=== PATIENT | female | born 1955 | race African-American/Black ===

== ENCOUNTER 2017-04-14 11:40 | Emergency (ER) | payer OTHER ==
[~2017-04-14] VITALS: Ht 167.6 cm; Wt 87.1 kg
--- NOTE | ~2017-04-14 | EKG ---
[facility] [address] [place] [address] ELECTROCARDIOGRAM REPORT Name: MINOO HITCHCOCK [facility] [id number] Admission: 04/14/17 Attend Phys: Discharge: 04/14/17 Date of : 57 Report #: [id number] THIS REPORT FOR: //name// [facility] ED Test Date: 2017-04-14 Test Time: 12:31:17 Pat Name: MINOO HITCHCOCK Department: Room: Gender: F Imagery Analyst: CALVIN : 1955 Requested By: Ajay Richardson Order Number: [id number] MD: Juan M Cortez Measurements Intervals [place] Rate: 78 P: 64 OR: 165 QRS: -18 QRSD: 99 T: 0 QT: 386 QTc: 440 Interpretive Statements Sinus rhythm Biatrial enlargement Borderline left axis deviation Borderline T abnormalities No previous ECG available for comparison Electronically Signed On 04-14-2017 16:06:53 WAREHOUSE ADMINISTRATOR by Juan M Cortez [email or web address] <ELECTRONICALLY SIGNED> By: Juan M Cortez MD, [facility] 04/14/17 1606 1231 1231 Juan M Cortez MD, FACC /EPI
[~2017-04-14 11:40] MED LIST: ADVIL200 MG PO; NOHOMEMEDICATIONS; NORCO 5-325 TA1 EACH PO
[2017-04-14 12:54] LABS: HEMATOCRIT 43.5 % (37.0-47.0); HEMOGLOBIN 15.2 gm/dL (12.0-15.0); MCH 28.6 pg (26.0-34.0); MCHC 34.9 g/dL (28.0-37.0); MCV 81.9 fL (80.0-100.0); RBC 5.31 mil/uL (4.20-5.00); RDW 14.3 % (10.5-14.5); WBC 4.4 thou/uL (4.0-11.0)
[2017-04-14 13:02] LABS: ANION GAP 10 mmol/L (7-16); BUN 9 mg/dL (7-18); CHLORIDE 103 mmol/L (98-107); CO2 28 mmol/L (21-32); CREATININE 0.9 mg/dL (0.6-1.0); GLUCOSE 98 mg/dL (74-106); POTASSIUM 3.1 mmol/L (3.5-5.1); SODIUM 141 mmol/L (136-145)
[2017-04-14 13:08] LABS: APTT 28.6 Seconds (24.5-32.8); INR 1.1; PROTIME 10.8 Seconds (9.3-11.4)
[2017-04-14 13:11] LABS: ALBUMIN 3.6 g/dL (3.4-5.0); LIPASE 91 U/L (73-393); MAGNESIUM 1.8 mg/dL (1.8-2.4); SGOT 59 U/L (15-37); SGPT 63 U/L (30-65); TOTAL BILIRUBIN 0.8 mg/dL (<0.1-1.0); TOTAL PROTEIN 7.7 g/dL (6.4-8.2); TROPONIN-I < 0.04 ng/mL (<0.06)
[2017-04-14] MEDS ORDERED: NEURONTIN600 MG PO (13:16)
[2017-04-14 13:53] LABS: URINE BILIRUBIN 1+ (Negative); URINE BLOOD TRACE (Negative); URINE CLARITY CLEAR; URINE COLOR YELLOW; URINE GLUCOSE-RANDOM* NEGATIVE (Negative); URINE KETONES 1+ (Negative); URINE NITRITE-REFLEX NEGATIVE (Negative); URINE PROTEIN (DIPSTICK) NEGATIVE (Negative); URINE SPECIFIC GRAVITY <= 1.005 (1.005-1.035); URINE UROBILINOGEN 0.2 E.U./dl (0.2-1.0)
[2017-04-14 13:55] LABS: PLATELET COUNT 143 thou/uL (150-400); PLATELET ESTIMATE NORMAL
[2017-04-14 14:00] LABS: URINE LEUKOCYTES-REFLEX TRACE (Negative)
[2017-04-14 14:01] LABS: ICTOTEST (BILI CONFIRMATORY) Negative (Negative)
[2017-04-14 14:03] VITALS: BP 127/101
[2017-04-14] MEDS ORDERED: ONDANSETRON HCL4 M2 PO (14:22)
== END 2017-04-14 15:20 | disposition home or self-care (01) ==
LOC: ER 11:40
PROVIDERS: Emergency Medicine
DX: R11.10 Vomiting, unspecified (principal); R10.13 Epigastric pain; R06.00 Dyspnea, unspecified

== ENCOUNTER 2017-04-21 17:13 | Inpatient (IN) | payer OTHER ==
[~2017-04-21] VITALS: Ht 170.2 cm; Wt 86.2 kg
--- NOTE | ~2017-04-21 | S ---
[facility] [place] [address] SURGICAL PATH RPT PROCEDURE Name: MINOO SCHUSTER Room #: 427-P ADM IN M.R.#: [id number] Admission: 04/21/17 Date of : 57 Discharge: Report #: [id number] Path Case #: [id number] PATHOLOGY REPORT COLLECTION DATE: 04/22/2017 RECEIVED DATE: 04/22/2017 SUBMITTING PHYS: Dr. Vimal Sparks, OTHER PHYS: Dr. Luis Miguel Oconnor SPECIMEN(S) RECEIVED: A.Gallbladder * * * * * * * * * * * * FINAL DIAGNOSIS: Gallbladder, cholecystectomy: - Mild chronic cholecystitis. - Cholelithiasis. (IUV:pit; 04/25/2017) PATHOLOGIST: Indigo Szymanski M.D. REPORT ELECTRONICALLY SIGNED BY: Indigo Szymanski M.D. DATE/TIME: 04/25/2017 14:45 * * * * * * * * * * * * GROSS PATHOLOGY: Received in formalin labeled "Minoo Schuster gallbladder," is a 6.8 x 3.8 x 1.1 cm, previously opened gallbladder with pink-laurent, bile-stained serosal surfaces. Opening the gallbladder reveals a velvety, pink-laurent mucosa and an average wall thickness of 0.1 cm. Calculi are present displaying a bright yellow and multinodular appearance, and no masses are noted grossly. Occasional Babysitter sections from the body and fundus are submitted along with the proximal margin in cassette A1. (CAA; 04/22/2017) CLINICAL HISTORY: Acute cholecystitis INITIAL CPT CODE(S): A; 83244 Professional services performed by [facility] at [facility] [address], [place] [address] Technical services performed by [facility] at [address] [place] [address] [address] [place] [address] SURGICAL PATH RPT PROCEDURE Name: MINOO SCHUSTER Room #: 427-P ADM IN .R.#: [id number] Admission: 04/21/17 Date of : 57 Discharge: Report #: [id number] Path Case #: [id number] [address]. [facility] [address] [address] PHONE: [phone] DIRECTOR: Basil Moore M.D. * * * END OF REPORT * * *
--- NOTE | ~2017-04-21 | EKG ---
[place] [address] [facility] [employer] [place] [place] [address] ELECTROCARDIOGRAM REPORT Name: MINOO HITCHCOCK Room #: 427-P ADM IN M.R.#: [id number] Admission: 04/21/17 Attend Phys: Luis Miguel Oconnor MD Discharge: Date of : 57 Report #: [id number] THIS REPORT FOR: //name// [facility] Test Date: 2017-04-23 Test Time: 00:45:01 Pat Name: MINOO HITCHCOCK Department: Room: 427 P Gender: F Grain Operations Manager: shahla : 1955 Requested By: Alva Balbuena Order Number: [id number] MD: Juan M Cortez Measurements Intervals [place] Rate: 75 P: 72 [place]: 162 QRS: -8 QRSD: 85 T: 35 QT: 394 QTc: 441 Interpretive Statements Sinus rhythm Biatrial enlargement Compared to ECG 04/21/2017 17:40:09 ST (T wave) deviation no longer present Electronically Signed On 04-23-2017 13:07:14 STAFF COUNSELOR by Juan M Cortez [email or web address] <ELECTRONICALLY SIGNED> By: Juan M Cortez MD, [facility] 04/23/17 1307 0045 0045 Juan M Cortez MD, [facility] /EPI
--- NOTE | ~2017-04-21 | EKG ---
[place] [address] [facility] [place] [address] ELECTROCARDIOGRAM REPORT Name: MINOO HITCHCOCK Room #: 427-P ADM IN M.R.#: [id number] Admission: 04/21/17 Attend Phys: Luis Miguel Oconnor MD Discharge: Date of : 57 Report #: [id number] THIS REPORT FOR: //name// [facility] Test Date: 2017-04-23 Test Time: 07:02:55 Pat Name: MINOO HITCHCOCK Department: Room: 427 Gender: F Maintenance Apprentice: renuka : 1955 Requested By: Luis Miguel Oconnor Order Number: [id number] MD: Juan M Cortez Measurements Intervals [place] Rate: 70 P: 65 [place]: 180 QRS: -17 QRSD: 108 T: 28 QT: 448 QTc: 484 Interpretive Statements Sinus rhythm Borderline left axis deviation Nonspecific ST segment abnormality Compared to ECG 04/21/2017 17:40:09 No significant changes Electronically Signed On 04-23-2017 13:10:05 LEGAL SECRETARY RECEPTIONIST by Juan M Cortez [email or web address] <ELECTRONICALLY SIGNED> By: Juan M Cortez MD, [facility] 04/23/17 1310 0702 0702 Juan M Cortez MD, [facility] /EPI
--- NOTE | ~2017-04-21 | EKG ---
[address] [place] [address] ELECTROCARDIOGRAM REPORT Name: MINOO HITCHCOCK Room #: 427-P ADM IN M.R.#: [id number] Admission: 04/21/17 Attend Phys: Luis Miguel Oconnor MD Discharge: Date of : 57 Report #: [id number] THIS REPORT FOR: //name// [facility] ED Test Date: 2017-04-21 Test Time: 17:40:09 Pat Name: MINOO HITCHCOCK Department: Room: 427 Gender: F Pt Skilled: LINNEA : 1955 Requested By: Morteza Andrade Order Number: [id number] MD: Juan M Cortez Measurements Intervals [place] Rate: 71 P: 64 [place]: 181 QRS: -9 QRSD: 94 T: 36 QT: 432 QTc: 470 Interpretive Statements Sinus rhythm Nonspecific ST segment abnormality Compared to ECG 04/14/2017 12:31:17 Nonspecific change in the ST and T-wave segments Electronically Signed On 04-22-2017 8:00:30 BUS PERSON by Juan M Cortez [email or web address] <ELECTRONICALLY SIGNED> By: Juan M Cortez MD, [facility] 04/22/17799 174 39 Juan M Cotrez MD, [facility] /EPI
--- NOTE | ~2017-04-21 | EKG ---
[address] [address] ELECTROCARDIOGRAM REPORT Name: MINOO HITCHCOCK Room #: 427-P ADM IN M.R.#: [id number] Admission: 04/21/17 Attend Phys: Luis Miguel Oconnor MD Discharge: Date of : 57 Report #: [id number] THIS REPORT FOR: //name// [facility] Test Date: 2017-04-23 Test Time: 09:12:45 Pat Name: MINOO HITCHCOCK Department: Room: 427 P Gender: F Solo Musician: DINORA : 1955 Requested By: Luis Miguel Oconnor Order Number: [id number] MD: Juan M Cortez Measurements Intervals [place] Rate: 71 P: MA: QRS: -9 QRSD: 117 T: 23 QT: 430 QTc: 468 Interpretive Statements Atrial flutter with predominant 4:1 AV block Nonspecific intraventricular conduction delay Nonspecific ST segment abnormality Compared to ECG 04/23/2017 07:02:55 No significant change was found Electronically Signed On 04-24-2017 14:22:55 CDT by Juan M Cortez [email or web address] <ELECTRONICALLY SIGNED> By: Juan M Cortez MD, [facility] 04/24/17 1422 1 1 Juan M Cortez MD, [facility] /EPI
[~2017-04-21 17:13] MED LIST changes: +NEURONTIN600 MG PO; +ONDANSETRON HCL4 M2 PO
[2017-04-21 17:16] VITALS: BP 164/87
[2017-04-21] MEDS ORDERED: OXYCONTIN20 M1 PO (17:23)
[2017-04-21 17:57] LABS: HEMATOCRIT 41.7 % (37.0-47.0); HEMOGLOBIN 14.6 gm/dL (12.0-15.0); MCH 28.6 pg (26.0-34.0); MCV 81.6 fL (80.0-100.0); RBC 5.11 mil/uL (4.20-5.00); WBC 5.3 thou/uL (4.0-11.0)
[2017-04-21 18:04] LABS: ANION GAP 12 mmol/L (7-16); BUN 6 mg/dL (7-18); CALCIUM 9.4 mg/dL (8.5-10.1); CHLORIDE 104 mmol/L (98-107); CO2 27 mmol/L (21-32); CREATININE 0.9 mg/dL (0.6-1.0); GLUCOSE 109 mg/dL (74-106); SODIUM 143 mmol/L (136-145)
[2017-04-21 18:10] LABS: ALBUMIN 3.6 g/dL (3.4-5.0); DIRECT BILIRUBIN 0.2 mg/dL (<0.1-0.3); TOTAL BILIRUBIN 0.9 mg/dL (<0.1-1.0); TOTAL PROTEIN 7.6 g/dL (6.4-8.2)
[2017-04-21 18:12] LABS: APTT 23.3 Seconds (24.5-32.8); PROTIME 10.3 Seconds (9.3-11.4)
[2017-04-21 18:13] LABS: TROPONIN-I < 0.04 ng/mL (<0.06)
[2017-04-21 21:52] VITALS: BP 147/78
[2017-04-21 22:10] VITALS: BP 151/86
[2017-04-22 03:26] VITALS: BP 130/72
[2017-04-22 04:16] LABS: CREATININE 0.8 mg/dL (0.6-1.0); POTASSIUM 3.1 mmol/L (3.5-5.1); TOTAL BILIRUBIN 0.8 mg/dL (<0.1-1.0); TOTAL PROTEIN 6.8 g/dL (6.4-8.2)
[2017-04-22 07:50] VITALS: BP 162/94
[2017-04-22 08:45] VITALS: BP 163/94
[2017-04-22 20:00] VITALS: BP 172/106
[2017-04-23 00:10] VITALS: BP 164/118
[2017-04-23 00:48] LABS: BE(vivo) 1.6 mmol/L (-2 to +3); HCO3 23.7 mmol/L (22.0-26.0); PCO2 30.6 mmHg (35.0-45.0); PO2 133.6 mmHg (80.0-100.0); pH 7.506 (7.360-7.450); sO2 98.9 % (92.0-98.0)
[2017-04-23 04:30] VITALS: BP 151/88
[2017-04-23 07:15] VITALS: BP 161/859
[2017-04-23 14:17] LABS: HEMATOCRIT 41.4 % (37.0-47.0); HEMOGLOBIN 14.1 gm/dL (12.0-15.0); MCH 28.3 pg (26.0-34.0); MCHC 34.1 g/dL (28.0-37.0); MCV 82.8 fL (80.0-100.0); RBC 4.99 mil/uL (4.20-5.00); RDW 14.3 % (10.5-14.5)
[2017-04-23 14:19] LABS: CALCIUM 8.8 mg/dL (8.5-10.1); CREATININE 0.8 mg/dL (0.6-1.0)
[2017-04-23 15:50] VITALS: BP 150/94
[2017-04-23 20:10] VITALS: BP 175/100
[2017-04-24] VITALS: BP 170/106
[2017-04-24 04:00] VITALS: BP 161/97
[2017-04-24 13:11] LABS: CALCIUM 8.8 mg/dL (8.5-10.1); CREATININE 0.7 mg/dL (0.6-1.0); MAGNESIUM 1.8 mg/dL (1.8-2.4)
[2017-04-24 13:15] LABS: POTASSIUM 2.7 mmol/L (3.5-5.1)
[2017-04-24] MEDS ORDERED: ATIVAN0.5 MG PO (15:42)
[2017-04-24] MEDS ORDERED: ZANAFLEX4 MG PO (15:43)
[2017-04-24 18:26] VITALS: BP 153/93
[2017-04-24 19:00] VITALS: BP 167/91
[2017-04-24 22:45] VITALS: BP 146/97
[2017-04-25 01:47] LABS: URINE BILIRUBIN NEGATIVE (Negative); URINE BLOOD NEGATIVE (Negative); URINE CLARITY CLEAR; URINE COLOR YELLOW; URINE GLUCOSE-RANDOM* NEGATIVE (Negative); URINE KETONES NEGATIVE (Negative); URINE LEUKOCYTES-REFLEX NEGATIVE (Negative); URINE NITRITE-REFLEX NEGATIVE (Negative); URINE PROTEIN (DIPSTICK) NEGATIVE (Negative); URINE SPECIFIC GRAVITY <= 1.005 (1.005-1.035); URINE UROBILINOGEN 0.2 E.U./dl (0.2-1.0)
[2017-04-25 03:25] VITALS: BP 106/68
[2017-04-25 07:47] VITALS: BP 105/61
[2017-04-25 08:22] LABS: HEMATOCRIT 37.2 % (37.0-47.0); HEMOGLOBIN 12.7 gm/dL (12.0-15.0); MCH 28.5 pg (26.0-34.0); RBC 4.44 mil/uL (4.20-5.00); RDW 14.4 % (10.5-14.5); WBC 7.1 thou/uL (4.0-11.0)
[2017-04-25 08:29] LABS: CALCIUM 8.7 mg/dL (8.5-10.1); MAGNESIUM 1.8 mg/dL (1.8-2.4); POTASSIUM 3.7 mmol/L (3.5-5.1)
[2017-04-25] MEDS ORDERED: MIRALAX17 GM PO (14:55)
[2017-04-25 20:10] VITALS: BP 140/93
[2017-04-26 03:16] VITALS: BP 138/86
[2017-04-26 05:11] LABS: CALCIUM 8.3 mg/dL (8.5-10.1); CREATININE 0.8 mg/dL (0.6-1.0); MAGNESIUM 1.8 mg/dL (1.8-2.4); POTASSIUM 3.3 mmol/L (3.5-5.1)
[2017-04-26 05:27] LABS: HEMATOCRIT 36.6 % (37.0-47.0); HEMOGLOBIN 12.3 gm/dL (12.0-15.0); MCH 28.1 pg (26.0-34.0); MCHC 33.8 g/dL (28.0-37.0); MCV 83.3 fL (80.0-100.0); RBC 4.39 mil/uL (4.20-5.00); RDW 14.4 % (10.5-14.5); WBC 6.2 thou/uL (4.0-11.0)
[2017-04-26 07:15] VITALS: BP 127/85
[2017-04-26 14:49] VITALS: BP 127/85
== END 2017-04-26 15:06 | disposition home or self-care (01) | DRG 417 ==
LOC: ER 17:13 → EROBS 21:36 → 4E 21:36
PROVIDERS: Emergency Medicine; Internal Medicine; Nurse Practitioner Acute Care
PROC: BF141ZZ Fluoroscopy of Gallbladder, Bile Ducts and Pancreatic Ducts using Low Osmolar Contrast (ICD-10-PCS; principal; 2017-04-22)
PROC: 0FT44ZZ Resection of Gallbladder, Percutaneous Endoscopic Approach (ICD-10-PCS; principal; 2017-04-22)
DX: K80.12 Calculus of gallbladder with acute and chronic cholecystitis without obstruction (principal); K85.10 Biliary acute pancreatitis without necrosis or infection; M19.90 Unspecified osteoarthritis, unspecified site; F17.210 Nicotine dependence, cigarettes, uncomplicated; E87.6 Hypokalemia; E86.0 Dehydration; I10 Essential (primary) hypertension; E66.9 Obesity, unspecified; Z68.29 Body mass index [BMI] 29.0-29.9, adult; Z98.84 Bariatric surgery status; Z79.899 Other long term (current) drug therapy
CPT/HCPCS: 10183; 50010; 50101; 50249; 50411; 50555; 50558; 50962; 51975; 52265; 53307; 53310; 54022; 54118; 55245; 55317; 56462; 56525; 56526; 62110; 62900; 70005

== ENCOUNTER 2017-12-11 08:41 | Emergency (ER) | payer OTHER ==
[~2017-12-11] VITALS: Ht 167.6 cm; Wt 75.8 kg
--- NOTE | ~2017-12-11 | EKG ---
[place] [address] [place] [address] ELECTROCARDIOGRAM REPORT Name: MINOO HITCHCOCK [facility] [id number] Admission: 12/11/17 Attend Phys: Discharge: 12/11/17 Date of : 57 Report #: [id number] THIS REPORT FOR: //name// [facility] ED Test Date: 2017-12-11 Test Time: 08:52:14 Pat Name: MINOO HITCHCOCK Department: Room: Gender: F Notary Public: [facility] : 1955 Requested By: Morteza Andrade Order Number: [id number] MD: Juan M Cortez Measurements Intervals [place] Rate: 79 P: 53 [place]: 160 QRS: -22 QRSD: 105 T: 41 QT: 382 QTc: 438 Interpretive Statements Sinus rhythm LAE, consider biatrial enlargement Poor R wave progression Compared to ECG 04/23/2017 09:12:45 No significant change was found Electronically Signed On 12-12-2017 9:15:18 CDT by Juan M Cortez [email or web address] <ELECTRONICALLY SIGNED> By: Juan M Cortez MD, [facility] 12/12/17 0915 Juan M Cortez MD, [facility] /EPI
[~2017-12-11 08:41] MED LIST changes: +ATIVAN0.5 MG PO; +MIRALAX17 GM PO; +OXYCONTIN20 M1 PO; +ZANAFLEX4 MG PO
[2017-12-11 09:09] LABS: ABSOLUTE NEUTROPHILS 4.8 thou/uL (1.4-8.2); BASOPHILS 0.7 % (0.0-2.0); EOSINOPHILS 0.9 % (0.0-3.0); HEMATOCRIT 46.7 % (37.0-47.0); HEMOGLOBIN 16.2 gm/dL (12.0-15.0); LYMPHOCYTES 16.6 % (24.0-44.0); MCH 29.9 pg (26.0-34.0); MCHC 34.7 g/dL (28.0-37.0); MCV 86.1 fL (80.0-100.0); MONOCYTES 4.3 % (1.0-8.0); PLATELET COUNT 277 thou/uL (150-400); POLYS 77.5 % (36.0-66.0); RBC 5.43 mil/uL (4.20-5.00); RDW 14.6 % (10.5-14.5); WBC 6.2 thou/uL (4.0-11.0)
[2017-12-11 09:18] LABS: CALCIUM 9.7 mg/dL (8.5-10.1); CREATININE 0.9 mg/dL (0.6-1.0); POTASSIUM 3.9 mmol/L (3.5-5.1)
[2017-12-11 09:24] LABS: TOTAL BILIRUBIN 0.5 mg/dL (<0.1-1.0); TOTAL PROTEIN 8.6 g/dL (6.4-8.2)
[2017-12-11 10:14] LABS: URINE BILIRUBIN NEGATIVE (Negative); URINE BLOOD NEGATIVE (Negative); URINE CLARITY CLEAR; URINE COLOR YELLOW; URINE GLUCOSE-RANDOM* NEGATIVE (Negative); URINE KETONES NEGATIVE (Negative); URINE NITRITE-REFLEX NEGATIVE (Negative); URINE PROTEIN (DIPSTICK) NEGATIVE (Negative); URINE UROBILINOGEN 0.2 E.U./dl (0.2-1.0)
[2017-12-11 10:17] LABS: URINE LEUKOCYTES-REFLEX TRACE (Negative)
[2017-12-11] MEDS ORDERED: ZOFRAN ODT8 MG PO (11:50)
[2017-12-11] MEDS ORDERED: ATIVAN0.5 MG PO (11:50)
== END 2017-12-11 12:31 | disposition home or self-care (01) ==
LOC: ER 08:41
PROVIDERS: Emergency Medicine
DX: R11.2 Nausea with vomiting, unspecified (principal); R53.1 Weakness; M54.9 Dorsalgia, unspecified; F17.210 Nicotine dependence, cigarettes, uncomplicated; M19.90 Unspecified osteoarthritis, unspecified site; J34.89 Other specified disorders of nose and nasal sinuses; R07.81 Pleurodynia; R51 Headache

== ENCOUNTER 2019-12-10 17:40 | Emergency (ER) | payer OTHER ==
[~2019-12-10] VITALS: Ht 170.2 cm; Wt 90.7 kg
[~2019-12-10 17:40] MED LIST changes: +ZOFRAN ODT8 MG PO
[2019-12-10 18:11] LABS: HEMATOCRIT 46.9 % (37.0-47.0); MCH 31.3 pg (26.0-34.0); MCHC 34.1 g/dL (28.0-37.0); MCV 91.7 fL (80.0-100.0); RBC 5.11 mil/uL (4.20-5.00); WBC 6.1 thou/uL (4.0-11.0)
[2019-12-10 18:17] LABS: CALCIUM 9.5 mg/dL (8.5-10.1); CREATININE 1.1 mg/dL (0.6-1.0); POTASSIUM 3.8 mmol/L (3.5-5.1)
[2019-12-10 18:23] LABS: DIRECT BILIRUBIN 0.2 mg/dL (<0.1-0.2); TOTAL PROTEIN 8.3 g/dL (6.4-8.2)
[2019-12-10 18:44] LABS: URINE BLOOD TRACE (Negative); URINE CLARITY CLEAR; URINE COLOR YELLOW; URINE GLUCOSE-RANDOM* NEGATIVE (Negative); URINE KETONES 1+ (Negative); URINE LEUKOCYTES-REFLEX TRACE (Negative); URINE NITRITE-REFLEX NEGATIVE (Negative); URINE PROTEIN (DIPSTICK) NEGATIVE (Negative); URINE SPECIFIC GRAVITY 1.015 (1.005-1.035)
[2019-12-10 18:47] LABS: ICTOTEST (BILI CONFIRMATORY) Negative (Negative); URINE BILIRUBIN NEGATIVE (Negative)
[2019-12-10 19:30] VITALS: BP 124/74
== END 2019-12-10 19:30 | disposition home or self-care (01) ==
LOC: ER 17:40
PROVIDERS: Emergency Medicine
DX: B34.9 Viral infection, unspecified (principal); I10 Essential (primary) hypertension; F17.210 Nicotine dependence, cigarettes, uncomplicated; Z79.899 Other long term (current) drug therapy

== ENCOUNTER 2020-02-08 02:37 | Emergency (ER) | payer OTHER ==
[~2020-02-08] VITALS: Ht 170.2 cm; Wt 90.7 kg
[2020-02-08] MEDS ORDERED: LORAZEPAM0.5 GM PO (03:56)
[2020-02-08 04:00] VITALS: BP 163/108
== END 2020-02-08 04:12 | disposition home or self-care (01) ==
LOC: ER 02:37
DX: F41.9 Anxiety disorder, unspecified (principal); M19.90 Unspecified osteoarthritis, unspecified site; F17.210 Nicotine dependence, cigarettes, uncomplicated; Z98.890 Other specified postprocedural states; Z79.899 Other long term (current) drug therapy

== ENCOUNTER 2020-08-18 14:17 | Emergency (ER) | payer OTHER ==
[~2020-08-18] VITALS: Ht 167.6 cm; Wt 90.7 kg
[~2020-08-18 14:17] MED LIST changes: +LORAZEPAM0.5 GM PO
[2020-08-18] MEDS ORDERED: NORCO5 PO (16:05)
[2020-08-18 16:11] VITALS: BP 132/81
== END 2020-08-18 16:15 | disposition home or self-care (01) ==
LOC: ER 14:17
DX: S22.42XA Multiple fractures of ribs, left side, initial encounter for closed fracture (principal); F17.210 Nicotine dependence, cigarettes, uncomplicated; M19.90 Unspecified osteoarthritis, unspecified site; Z98.890 Other specified postprocedural states; Z79.899 Other long term (current) drug therapy; W19.XXXA Unspecified fall, initial encounter; Y93.89 Activity, other specified; Y92.89 Other specified places as the place of occurrence of the external cause; Y99.8 Other external cause status

== ENCOUNTER 2021-02-20 13:39 | Emergency (ER) | payer OTHER ==
[~2021-02-20] VITALS: Ht 167.6 cm; Wt 90.7 kg
--- NOTE | ~2021-02-20 | EMS ---
[address] [address] EMS Patient Care Report Name: MINOO HITCHCOCK Room #: DEP Stacy#: [id number] Admission: 02/20/21 Attend Phys: Discharge: 02/20/21 Date of : 57 Report #: [id number] THIS REPORT FOR: //name// Report Transmitted: 02/20/2021 16:24 EMS [facility] [id number] @ 02/20/2021 12:59 Incident Location [address] [place] [address] Patient MINOO HITCHCOCK Female, 65 Years 1955 Patient Address [address] [place] [address] Patient History Hypertension (HTN),Arthritis, Patient Allergies No known allergies, Patient Medications Hydrochlorothiazide (Hctz), Labetalol, Chief Complaint shortness of breath Disposition Transported No Lights/[place] Dispatch Reason Sick Person Transported To [facility] Narrative Dispatch: [employer] Squad # 51 dispatched emergent to the listed location on a report of sick person [address] [address] EMS Patient Care Report Name: MINOO HITCHCOCK Room #: DEP Stacy#: [id number] Admission: 02/20/21 Attend Phys: Discharge: 02/20/21 Date of : 57 Report #: [id number] Chief condition: SOA History of Event: EMS arrived to find 59 yo female Ox4 sitting in chair speaking in full sentences. pt states she has had increased SOA x 2 days and has flu or COVID like symptoms including weakness and fatigue . pt states she does not respiratory or cardiac history . pt wishes to be transported to [facility] [place] for further assessment and treatment Assessment: Initial Exam: Patient presents fully alert. GCS: 15.. Airway is self-maintained. Respirations are spontaneous, adequate and non-labored. Skin is pink/warm/dry. Radial pulse is strong and regular. Pt is oriented x4. HEENT: EENT intact and clear; Pupils are equal, round, reactive to light, denies dizziness Neuro: Pt is oriented and appropriate, with no deficits noted. No facial droop noted, speech is not slurred, No arm drift, sand hauler/push/pulls are equal/symmetric. Neck: No JVD noted. Trachea is midline. No complaints. Chest: Non-tender with equal rise and fall. Lungs: Clear to auscultation bilaterally, adequate air movement, non productive cough Abdomen: Non-distended/soft, non-tender no guarding present GI/: No incontinence / denies nausea / vomiting Pelvis: Stable/non-tender. Back - Non-tender, no complaints. Extremities Upper: Noted to have adequate PMS, 20 GA Iv access gained in left AC Extremities Lower: Noted to have adequate PMS, without edema. Rx: Assessment, vitals monitoring, blood glucose 172, cardiac monitoring, IV access 20 GA , 12 lead ECG, safe transport to [facility] Transport: Responded urgently. Unit arrived. Pt assessment, vitals obtained, pt consent for transport, patient moved to cot by ambulating with assistance , secured semi breaux's with safety straps x3 and blanket. Cot secured in [facility] [address] [place] [address] EMS Patient Care Report Name: MINOO HITCHCOCK Room #: DEP CARROL Kumar#: [id number] Admission: 02/20/21 Attend Phys: Discharge: 02/20/21 Date of : 57 Report #: [id number] ambulance. vitals and cardiac nurse practitioner, IV 20 GA , BGL-172. Transport initiated. Comfort care provided. Patient report given to receiving facility prior to arrival, no acute changes with pt tolerating all interventions /assessments . Report to and care assumed by nurse signed on consent form. Pt moved to hospital bed in triage (fast track) room EOR [id number] Ajay Gonzalez [employer] Initial Vitals @13:27P: 76,SpO2: 100, @13:26MI Suspected: false @13:23P: 83,SpO2: 100, @13:33P: 83,SpO2: 100, @13:28P: 78,SpO2: 100, @13:27MI Suspected: false @13:11P: 83,BP: 168/98,SpO2: 98, @13:20P: 78,BP: 177/97,Pain: 0/10,GCS: 15,Temp: 98.8F,SpO2: 98, @13:20P: 82,R: 18,Pain: 0/10,GCS: 15,Glucose: 176,SpO2: 98,[place] Suspected: false @13:10P: 81,R: 16,Pain: 0/10,GCS: 15,SpO2: 98, @13:36P: 92,R: 18,BP: 166/96,Pain: 0/10,GCS: 15,Revised Trauma: 12, Impression Shortness of breath Procedures @13:07 ALS Assessment Response: UnchangedSucceeded @13:26 12-Lead ECG Response: UnchangedSucceeded @13:27 12-Lead ECG Response: UnchangedSucceeded @13:20 3-Lead ECGSucceeded @13:18 IV Therapy - Saline Lock 10cc (20 ga) Site: Antecubital-Left Response: UnchangedSucceeded Timeline 12:56,Call Received 12:56,Psap Call 12:59,Dispatched 13:01,En Route 13:03,Initial Responder On Scene 13:03,On Scene 13:05,At Patient 13:07,ALS Assessment,Response: UnchangedSucceeded, 13:10,BP: / M,PULSE: 81,RR: 16 R,SPO2: 98 Ox,ETCO2: ,BG: ,PAIN: 0,GCS: 15, 13:11,BP: 168/98 M,PULSE: 83,RR: R,SPO2: 98 Ox,ETCO2: ,BG: ,PAIN: ,GCS: , [facility] [address] [place] [address] EMS Patient Care Report Name: MINOO HITCHCOCK Room #: DEP CARROL Kumar#: [id number] Admission: 02/20/21 Attend Phys: Discharge: 02/20/21 Date of : 57 Report #: [id number] 13:18,IV Therapy - Saline Lock 10cc 20 ga Site: Antecubital-Left,Response: UnchangedSucceeded, 13:20,3-Lead ECG,Succeeded, 13:20,BP: / M,PULSE: 82,RR: 18 R,SPO2: 98 Ox,ETCO2: ,B,PAIN: 0,GCS: 15, 13:20,BP: 177/97 M,PULSE: 78,RR: R,SPO2: 98 Ox,ETCO2: ,BG: ,PAIN: 0,GCS: 15, 13:20,Depart Scene 13:23,BP: / M,PULSE: 83,RR: R,SPO2: 100 Ox,ETCO2: ,BG: ,PAIN: ,GCS: , 13:26,12-Lead ECG,Response: UnchangedSucceeded, 13:26,BP: / M,PULSE: ,RR: R,SPO2: Ox,ETCO2: ,BG: ,PAIN: ,GCS: , 13:27,BP: / M,PULSE: 76,RR: R,SPO2: 100 Ox,ETCO2: ,BG: ,PAIN: ,GCS: , 13:27,12-Lead ECG,Response: UnchangedSucceeded, 13:27,BP: / M,PULSE: ,RR: R,SPO2: Ox,ETCO2: ,BG: ,PAIN: ,GCS: , 13:28,BP: / M,PULSE: 78,RR: R,SPO2: 100 Ox,ETCO2: ,BG: ,PAIN: ,GCS: , 13:33,BP: / M,PULSE: 83,RR: R,SPO2: 100 Ox,ETCO2: ,BG: ,PAIN: ,GCS: , 13:35,At Destination 13:36,BP: 166/96 M,PULSE: 92,RR: 18 R,SPO2: Ox,ETCO2: ,BG: ,PAIN: 0,GCS: 15, 13:38,Transfer Patient 13:54,Call Closed Disclaimer v1.1 Copyright 2021 [employer] This EMS Care Summary contains data elements from the applicable legal record (which may be displayed differently). It is designed to provide pertinent information for the following purposes: continuity of care, clinical quality, and state data reporting. The complete legal record is available to ED staff and administrators of the receiving hospital in [employer]'s Patient Tracker. All data is provided "as is."
--- NOTE | ~2021-02-20 | EMS ---
[address] [address] EMS Patient Care Report Name: MINOO HITCHCOCK Room #: DEP Stacy#: [id number] Admission: 02/20/21 Attend Phys: Discharge: 02/20/21 Date of : 57 Report #: [id number] THIS REPORT FOR: //name// Report Transmitted: 02/20/2021 15:[address] [facility] Incident [id number] @ 02/20/2021 12:59 Incident Location [address] [place] [address] Patient MINOO HITCHCOCK Female, 65 Years 1955 Patient Address [address] [place] [address] Patient History Hypertension (HTN),Arthritis, Patient Allergies No known allergies, Patient Medications Hydrochlorothiazide (Hctz), Labetalol, Chief Complaint shortness of breath Disposition Transported No Lights/[place] Dispatch Reason Sick Person Transported To [facility] Narrative Dispatch: [employer] Squad # 51 dispatched emergent to the listed location on a report of sick person [address] [address] EMS Patient Care Report Name: MINOO HITCHCOCK Room #: DEP Stacy#: [id number] Admission: 02/20/21 Attend Phys: Discharge: 02/20/21 Date of : 57 Report #: [id number] Chief condition: SOA History of Event: EMS arrived to find 59 yo female Ox4 sitting in chair speaking in full sentences. pt states she has had increased SOA x 2 days and has flu or COVID like symptoms including weakness and fatigue . pt states she does not respiratory or cardiac history . pt wishes to be transported to [facility] for further assessment and treatment Assessment: Initial Exam: Patient presents fully alert. GCS: 15.. Airway is self-maintained. Respirations are spontaneous, adequate and non-labored. Skin is pink/warm/dry. Radial pulse is strong and regular. Pt is oriented x4. HEENT: EENT intact and clear; Pupils are equal, round, reactive to light, denies dizziness Neuro: Pt is oriented and appropriate, with no deficits noted. No facial droop noted, speech is not slurred, No arm drift, industry consultant/push/pulls are equal/symmetric. Neck: No JVD noted. Trachea is midline. No complaints. Chest: Non-tender with equal rise and fall. Lungs: Clear to auscultation bilaterally, adequate air movement, non productive cough Abdomen: Non-distended/soft, non-tender no guarding present GI/: No incontinence / denies nausea / vomiting Pelvis: Stable/non-tender. Back - Non-tender, no complaints. Extremities Upper: Noted to have adequate PMS, 20 GA Iv access gained in left AC Extremities Lower: Noted to have adequate PMS, without edema. Rx: Assessment, vitals monitoring, blood glucose 172, cardiac monitoring, IV access 20 GA , 12 lead ECG, safe transport to [facility] Transport: Responded urgently. Unit arrived. Pt assessment, vitals obtained, pt consent for transport, patient moved to cot by ambulating with assistance , secured semi breaux's with safety straps x3 and blanket. Cot secured in [facility] [address] [place] [address] EMS Patient Care Report Name: MINOO HITCHCOCK Room #: DEP CARROL Kumar#: [id number] Admission: 02/20/21 Attend Phys: Discharge: 02/20/21 Date of : 57 Report #: [id number] ambulance. vitals and hydraulic auto jack mechanic, IV 20 GA , BGL-172. Transport initiated. Comfort care provided. Patient report given to receiving facility prior to arrival, no acute changes with pt tolerating all interventions /assessments . Report to and care assumed by nurse signed on consent form. Pt moved to hospital bed in triage (fast track) room EOR [id number] Ajay Gonzalez [employer] Initial Vitals @13:27P: 76,SpO2: 100, @13:26MI Suspected: false @13:23P: 83,SpO2: 100, @13:33P: 83,SpO2: 100, @13:28P: 78,SpO2: 100, @13:27MI Suspected: false @13:11P: 83,BP: 168/98,SpO2: 98, @13:20P: 78,BP: 177/97,Pain: 0/10,GCS: 15,Temp: 98.8F,SpO2: 98, @13:20P: 82,R: 18,Pain: 0/10,GCS: 15,Glucose: 176,SpO2: 98,[place] Suspected: false @13:10P: 81,R: 16,Pain: 0/10,GCS: 15,SpO2: 98, @13:36P: 92,R: 18,BP: 166/96,Pain: 0/10,GCS: 15,Revised Trauma: 12, Impression Shortness of breath Procedures @13:07 ALS Assessment Response: UnchangedSucceeded @13:26 12-Lead ECG Response: UnchangedSucceeded @13:27 12-Lead ECG Response: UnchangedSucceeded @13:20 3-Lead ECGSucceeded @13:18 IV Therapy - Saline Lock 10cc (20 ga) Site: Antecubital-Left Response: UnchangedSucceeded Timeline 12:56,Call Received 12:56,Psap Call 12:59,Dispatched 13:01,En Route 13:03,Initial Responder On Scene 13:03,On Scene 13:05,At Patient 13:07,ALS Assessment,Response: UnchangedSucceeded, 13:10,BP: / M,PULSE: 81,RR: 16 R,SPO2: 98 Ox,ETCO2: ,BG: ,PAIN: 0,GCS: 15, 13:11,BP: 168/98 M,PULSE: 83,RR: R,SPO2: 98 Ox,ETCO2: ,BG: ,PAIN: ,GCS: , [facility] [address] [place] [address] EMS Patient Care Report Name: MINOO HITCHCOCK Room #: DEP CARROL Kumar#: [id number] Admission: 02/20/21 Attend Phys: Discharge: 02/20/21 Date of : 57 Report #: [id number] 13:18,IV Therapy - Saline Lock 10cc 20 ga Site: Antecubital-Left,Response: UnchangedSucceeded, 13:20,3-Lead ECG,Succeeded, 13:20,BP: / M,PULSE: 82,RR: 18 R,SPO2: 98 Ox,ETCO2: ,B,PAIN: 0,GCS: 15, 13:20,BP: 177/97 M,PULSE: 78,RR: R,SPO2: 98 Ox,ETCO2: ,BG: ,PAIN: 0,GCS: 15, 13:20,Depart Scene 13:23,BP: / M,PULSE: 83,RR: R,SPO2: 100 Ox,ETCO2: ,BG: ,PAIN: ,GCS: , 13:26,12-Lead ECG,Response: UnchangedSucceeded, 13:26,BP: / M,PULSE: ,RR: R,SPO2: Ox,ETCO2: ,BG: ,PAIN: ,GCS: , 13:27,BP: / M,PULSE: 76,RR: R,SPO2: 100 Ox,ETCO2: ,BG: ,PAIN: ,GCS: , 13:27,12-Lead ECG,Response: UnchangedSucceeded, 13:27,BP: / M,PULSE: ,RR: R,SPO2: Ox,ETCO2: ,BG: ,PAIN: ,GCS: , 13:28,BP: / M,PULSE: 78,RR: R,SPO2: 100 Ox,ETCO2: ,BG: ,PAIN: ,GCS: , 13:33,BP: / M,PULSE: 83,RR: R,SPO2: 100 Ox,ETCO2: ,BG: ,PAIN: ,GCS: , 13:35,At Destination 13:36,BP: 166/96 M,PULSE: 92,RR: 18 R,SPO2: Ox,ETCO2: ,BG: ,PAIN: 0,GCS: 15, 13:38,Transfer Patient 13:54,Call Closed Disclaimer v1.1 Copyright 2021 [employer] This EMS Care Summary contains data elements from the applicable legal record (which may be displayed differently). It is designed to provide pertinent information for the following purposes: continuity of care, clinical quality, and state data reporting. The complete legal record is available to ED staff and administrators of the receiving hospital in [employer]'s Patient Tracker. All data is provided "as is."
[~2021-02-20 13:39] MED LIST changes: +NORCO5 PO
[2021-02-20] MEDS ORDERED: PREDNISONE50 MG PO (15:44)
[2021-02-20] MEDS ORDERED: TESSALON PERLE100 MG PO (15:44)
[2021-02-20 16:01] VITALS: BP 181/92
== END 2021-02-20 16:01 | disposition home or self-care (01) ==
LOC: ER 13:39
DX: J06.9 Acute upper respiratory infection, unspecified (principal); Z20.822 Contact with and (suspected) exposure to COVID-19; J45.901 Unspecified asthma with (acute) exacerbation; M19.90 Unspecified osteoarthritis, unspecified site; F17.210 Nicotine dependence, cigarettes, uncomplicated; Z98.890 Other specified postprocedural states; Z79.899 Other long term (current) drug therapy